=== PATIENT | male | born 1975 | race Caucasian/White ===

== ENCOUNTER 2018-03-12 12:53 | Emergency (ER) | payer OTHER ==
[~2018-03-12] VITALS: Ht 175.3 cm; Wt 106.2 kg
[2018-03-12 12:56] VITALS: BP 154/101; PULSE 109; RESP 20; Ht 175.3 cm; Wt 106.2 kg
[2018-03-12] MEDS ORDERED: ALBUTEROL 0.083% (NEB) 2.5 MG/3 ML AMP HHN STA (15:20)
[2018-03-12] MEDS ORDERED: predniSONE 20 MG TAB PO ONE (15:30)
[2018-03-12] MEDS ORDERED: PRED20TA PO (15:47)
[2018-03-12] MEDS ORDERED: AZIT250T PO (15:47)
[2018-03-12] MEDS ORDERED: ALBU18HF INHALATION (15:47)
--- NOTE | 2018-03-12 15:49 | ERD ---
ER Documentation Chief Complaint Chief Complaint Complains of a cough x 5-6 days HPI This 42-year-old male presents with cough for the last 5-6 days. He does feel better today. He may have wheezing. Denies any current fevers. He did have fevers prior although unmeasured as well as myalgias or body aches. Denies chest pain, vomiting, abdominal pain. ROS All systems reviewed and are negative except as per history of present illness. Medications Home Meds Active Scripts Albuterol Sulfate* (Ventolin HFA*) 18 Gm Hfa.aer.ad, 2 PUFF INHALATION Q4H, #1 INHALER Prov:CECILIO DOMÍNGUEZ MD 03/12/18 Prednisone* (Prednisone*) 20 Mg Tab, 40 MG PO DAILY for 4 Days, TAB Start March 13, 2018 Prov:CECILIO DOMÍNGUEZ MD 03/12/18 Azithromycin* (Zithromax*) 250 Mg Tablet, 250 MG PO .ZPACK DIRECTED, #6 TAB TAKE 500 MG (2 TABS) THE FIRST DAY THEN 250 MG (1 TAB) DAYS 2-5 Prov:CECILIO DOMÍNGUEZ MD 03/12/18 Allergies Allergies: Coded Allergies: No Known Allergy (Unverified , 03/12/18) PMhx/Soc Medical and Surgical Hx: pt denies Medical Hx, pt denies Surgical Hx Hx Alcohol Use: No Hx Substance Use: No Hx Tobacco Use: No FmHx Family History: No diabetes, No coronary disease, No other Physical Exam Vitals Vital Signs Date Temp Pulse Resp B/P (MAP) Pulse Ox O2 O2 Flow FiO2 Time Delivery Rate 03/12/18 90 20 98 21 15:36 03/12/18 97.9 109 20 154/101 95 12:56 (118) Physical Exam Const: No acute distress Head: Atraumatic Eyes: Normal Conjunctiva ENT: Normal External Ears, Nose and Mouth. TMs and oropharynx normal. Neck: Full range of motion. No meningismus. Resp: Clear to auscultation bilaterally. Coarse cough and mild wheezing without rales or retractions. Cardio: Regular rate and rhythm, no murmurs Abd: Soft, non tender, non distended. Normal bowel sounds Skin: No petechiae or rashes Back: No midline or flank tenderness Ext: No cyanosis, or edema Neur: Awake and alert Psych: Normal Mood and Affect Results 24 hrs Current Medications Medications Dose Sig/Oc Start Time Status Last (Trade) Ordered Route PRN Stop Time Admin Dose Reason Admin Prednisone 60 mg ONCE ONCE 03/12/18 DC 03/12/18 (Prednisone) PO 15:30 15:25 03/12/18 15:31 Albuterol 5 mg ONCE STAT 03/12/18 DC 03/12/18 (Proventil HHN 15:20 15:36 0.083% (Neb)) 03/12/18 15:21 Procedures/MDM Patient presents with a 5-6-day history of URI symptoms and wheezing. He may have resolving viral illness or influenza type illness. There is no evidence of hypoxemia or signs of pneumonia on exam. He was given albuterol treatment, prednisone 60 mg by mouth. States that he does have productive mucus which is currently clear to yellow. We discharged home with a prescription for Ventolin, continuation of a prednisone burst, prescription of Zithromax with instructions to hold for 3-4 days to take for productive or worsening productive mucus. He is advised to other otherwise allow possible viral illness to resolve. The patient was stable with no new complaints during the ER course. Clinically, there is no current evidence to suggest meningitis, sepsis, acute abdomen, pneumonia, stroke, acute coronary syndrome, pulmonary embolism, aortic dissection or any other emergent condition appearing to require further evaluation or hospitalization. Patient counseled regarding my diagnostic impression and care plan. Prior to discharge all questions answered. Pt agrees with treatment plan and understands strict return precautions. Pt is instructed to follow up with primary care provider within 24-48 hours. Precautionary instructions provided including instructions to return to the ER if not improving or for any worsening or changing symptoms or concerns. Departure Diagnosis: Primary Impression: Cough Condition: Stable Patient Instructions: Bronchitis With Wheezing (Adult) Additional Instructions: Likely resolving viral illness. Okay to hold antibiotics for 3-4 days. Recheck for new or worsening symptoms or with primary care doctor. CECILIO DOMÍNGUEZ MD Mar 12, 2018 15:49
[2018-03-12] MEDS ORDERED: PROM5SYR2 PO (16:11)
== END 2018-03-12 16:16 | disposition home or self-care (01) ==
LOC: FTE 12:53
DX: R05 Cough (principal)
CPT/HCPCS: 94664; 99283; J7512